=== PATIENT | male | born 2000 | race Two or more races ===

== ENCOUNTER 2024-05-08 16:05 | Emergency (ER) | payer SELFPAY ==
[2024-05-08] MEDS: Lidocaine 1% 5 ML VIAL INJECT ONE (17:09)
[2024-05-08] MEDS: Diphtheria,Pertussis(Acell),Tetanus Vaccine 0.5 ML Syringe IM ONE (17:10)
[2024-05-08] MEDS: Bacitracin Oint 1 GM U/D Packet TOP ONE (17:12)
== END 2024-05-08 18:07 | disposition home or self-care (01) ==
LOC: MW.ED 16:05
DX: S61.212A Laceration without foreign body of right middle finger without damage to nail, initial encounter (principal); F17.210 Nicotine dependence, cigarettes, uncomplicated; Z75.8 Other problems related to medical facilities and other health care; Z23 Encounter for immunization; W23.1XXA Caught, crushed, jammed, or pinched between stationary objects, initial encounter
CPT/HCPCS: 12001; 73130-26-RT; 73130-RT; 90471; 90715; 99282; 99283-25; J3490